=== PATIENT | female | born 1950 | race Caucasian/White ===

== ENCOUNTER 2019-12-03 07:57 | Day surgery (SDC) | payer MEDICARE, OTHER ==
[2019-11-09 13:19] LABS: HEMATOCRIT 45.9 % (36.0-47.0); HEMOGLOBIN 15.5 g/dL (12.0-15.5); MEAN CORPUSCULAR HEMOGLOBIN 32.5 pg (27.0-33.4); MEAN CORPUSCULAR HGB CONC 33.7 g/dL (32.0-36.0); MEAN CORPUSCULAR VOLUME 97 fl (80-97); PLATELET COUNT 226 10^3/uL (150-450); RED BLOOD COUNT 4.75 10^6/uL (3.72-5.28); WHITE BLOOD COUNT 5.3 10^3/uL (4.0-10.5)
[~2019-12-03 07:57] MED LIST: PROPOFOL INJ 200 MG/20 ML VIAL IV ONE
[2019-12-03 09:58] VITALS: BP 129/75
--- NOTE | 2019-12-03 10:08 | Discharge Summary ---
Discharge Summary (SDC) - Discharge Final Diagnosis: 1. Personal history of colon polyps 2. Left colon polyp status post colonoscopy with polypectomy Date of Surgery: 12/03/19 Discharge Date: 12/03/19 Condition: Good Forms: EU Anesthesia D/C Instructions, Discharge POC-Surgical Service Treatment or Instructions: NO DRIVING TODAY ADVANCE DIET TOLERATED Referrals: RUBÉN HAIRSTON MD [ACTIVE STAFF] - Discharge Diet: As Tolerated Respiratory Treatments at Home: Deep Breathing/Coughing Discharge Activity: Activity As Tolerated, Balance Activity w/Rest, No Driving Home Care Assistance: None Needed Report the Following to Your Physician Immediately: Shortness of Breath, Nausea, Vomiting, Increase in Pain, Fever over 101 Degrees, Unusual Bleeding, IV Site Infection Signs
--- NOTE | 2019-12-03 10:12 | Operative Report ---
Operative Report DATE OF SURGERY: 12/03/19 PREOPERATIVE DIAGNOSIS: Personal history of colon polyps POSTOPERATIVE DIAGNOSIS: Same with. 1. External hemorrhoids. 2. Left colon polyp OPERATION: 1. Total colonoscopy to cecum with photodocumentation. 2. Hot snare polypectomy left colon polyp SURGEON: RUBÉN HAIRSTON ANESTHESIA: LMAC TISSUE REMOVED OR ALTERED: Fragments of left colon polyp COMPLICATIONS: None ESTIMATED BLOOD LOSS: Minimal INTRAOPERATIVE FINDINGS: See below PROCEDURE: Obtaining informed consent the patient was taken from the preoperative holding area to the main endoscopy suite where monitoring devices were attached to the patient. Plan and surgical timeout were conducted The patient was placed in the left lateral decubitus position with knees to chest. A perianal examination was performed. Prior to sedation, we had the patient Valsalva. She has a circumferential, collapsed, retired nonthrombosed non-excoriated external hemorrhoids. Sphincter tone was felt to be normal. The flexible adult colonoscope was advanced through the anal rectal canal, all the way to the cecum. Visualization of the cecum was achieved by demonstration of the ileocecal valve, the appendiceal orifice and transillumination of the anterior abdominal wall. The colon was a bit redundant. This was an excellent study on the well-prepped bowel. The colonoscope was withdrawn slowly and methodically checked and the mucosa carefully. There was no evidence of tumor, stricture, bleeding. There was no evidence of diverticuloses. In the left colon at approximately 60 cm from the anal verge was a small, slightly raised less than 5 mm polyp which was hot snared and mediu m heat strength, and coagulated. Fragments of specimen retrieved with the cold forceps device and sent as left colon polyp. Bleeding was minimal. The scope was slowly withdrawn through the remainder of the colon and anorectal canal. Complete visualization of the rectum was achieved with photodocumentation. The scope was withdrawn to the patient's anus. The patient tolerated the procedure well and was taken to the recovery area in stable condition. Per surveillance guidelines, patient will be an appropriate candidate for follow-up colonoscopy in [approximately 5] years.
== END 2019-12-03 10:15 | disposition home or self-care (01) ==
LOC: END 07:57
PROVIDERS: ATTEND Surgery
DX: Z12.11 Encounter for screening for malignant neoplasm of colon (principal); D12.6 Benign neoplasm of colon, unspecified; K64.4 Residual hemorrhoidal skin tags; Z87.19 Personal history of other diseases of the digestive system; I10 Essential (primary) hypertension; M79.7 Fibromyalgia; E16.2 Hypoglycemia, unspecified; E07.9 Disorder of thyroid, unspecified; M19.90 Unspecified osteoarthritis, unspecified site; Z88.1 Allergy status to other antibiotic agents; Z88.6 Allergy status to analgesic agent; Z88.8 Allergy status to other drugs, medicaments and biological substances; Z91.041 Radiographic dye allergy status; Z86.11 Personal history of tuberculosis; Z85.828 Personal history of other malignant neoplasm of skin; Z03.818 Encounter for observation for suspected exposure to other biological agents ruled out
CPT/HCPCS: 45385; 36415; 85027; 88305 ×2; 00812; U0003 ×2; J2704; C9803 ×2; 45380; 812; 87635